=== PATIENT | male | born 1985 | race Caucasian/White ===

== ENCOUNTER 2018-12-24 21:30 | Emergency (ER) | payer SELFPAY ==
[~2018-12-24] VITALS: Ht 182.8 cm; Wt 86.0 kg
[~2018-12-24 21:30] MED LIST: AC500T; ACET-789 PO; AGM875T PO; AMOX500C2 PO; CLIN300C3 PO; HYDR-757 PO; HYDR1TAB PO; OXYC-272 PO
--- NOTE | 2018-12-24 22:01 | ED Lower Extremity ---
General Chief Complaint: Lower Extremity Stated Complaint: L ANKLE INJ Source: patient Exam Limitations: no limitations History of Present Illness Date Seen by Provider: Dec 24, 2018 Time Seen by Provider: 21:59 Initial Comments To ER with left ankle pain for 3 days after rolling it while walking out of [facility] No swelling no bruising that he has noticed. Pain is at the medial malleolus of the ankle Onset: just prior to arrival Severity: mild Pain/Injury Location: left ankle Method of Injury: unknown Allergies and Home Medications Allergies Coded Allergies: NKANo Known Allergies (Unverified Allergy, Mild, 06/05/09) Home Medications Amoxicillin/Clavulanate K 1 Tab Tablet, 1 TAB PO BID Prescribed by: PALMER SCHULER on 01/09/13 1441 Hydrocodone Bit/Acetaminophen 1 Each Tablet, 1 EA PO Q6H PRN for MILD PAIN Prescribed by: PALMER SCHULER on 01/09/13 1441 Patient Home Medication List Home Medication List Reviewed: Yes Review of Systems Constitutional: see HPI EENTM: see HPI Respiratory: no symptoms reported Cardiovascular: no symptoms reported Genitourinary: no symptoms reported Musculoskeletal: see HPI Skin: no symptoms reported Psychiatric/Neurological: No Symptoms Reported Past [id number] Hx Patient Social History Recent Foreign Travel: No Contact w/Someone Who Travel: No Past Medical History Reproductive Disorders: No Physical Exam Vital Signs Vital Signs - First Documented 12/24/18 21:51 Temp 36.6 Pulse 72 Resp 18 B/P (MAP) 132/93 (106) Capillary Refill : Height, Weight, BMI Height: '" Weight: 205lbs. oz. 92.615338om; BMI Method:Stated General Appearance: WD/WN, no apparent distress Neck: full range of motion, normal inspection Respiratory: no respiratory distress, no accessory muscle use Hips: bilateral hip non-tender, bilateral hip normal inspection, bilateral hip normal range of motion Legs: bilateral leg non-tender, bilateral leg normal inspection, bilateral leg normal range of motion Knees: bilateral knee non-tender, bilateral knee normal inspection, bilateral knee normal range of motion Ankles: left ankle pain, left ankle other (no swelling no ecchymosis or erythema no abrasions noted deformity. Strong dorsalis pedis pulse in the foot.) Feet: bilateral foot non-tender, bilateral foot normal inspection, bilateral foot normal range of motion Neurologic/Psychiatric: alert, normal mood/affect, oriented x 3 Skin: normal color, warm/dry Progress/Results/Core Measures Results/Orders My Orders Orders - PALMER SCHULER APRN Ankle, Left, 3 Views (12/24/18 21:56) Vital Signs/I&O 12/24/18 21:51 Temp 36.6 Pulse 72 Resp 18 B/P (MAP) 132/93 (106) Departure Impression Primary Impression: Ankle pain Disposition: HOME, SELF-CARE Condition: Stable Departure-Patient Inst. Decision time for Depature: 22:01 Referrals: NO,LOCAL PHYSICIAN (PCP/Family) Primary Care Physician Patient Instructions: Ankle Sprain (DC) Add. Discharge Instructions: 1. Tylenol and Motrin for pain control 2. Follow-up with your doctor next week for repeat imaging pain persists 3. All discharge instructions reviewed with patient and/or family. Voiced understanding. Work/School Note: Work Release Form Date Seen in the Emergency Department: Dec 24, 2018 Return to Work: Dec 25, 2018 PALMER SCHULER APRN Dec 24, 2018 22:01 POS
[2018-12-24 22:08] VITALS: BP 130/92
--- NOTE | 2018-12-25 07:12 | Diagnostic Imaging Report ---
INDICATION: Ankle pain. 3 views were obtained. FINDINGS: The alignment is normal. The plafonds and talar dome intact. Ankle mortise symmetric. No fracture, dislocation. Soft tissues are unremarkable. IMPRESSION: No focal abnormality left ankle. Dictated by: Dictated on workstation # [id number]
== END 2018-12-24 22:10 | disposition home or self-care (01) ==
LOC: EDUNIT# 21:30 → ER 21:31
DX: M25.572 Pain in left ankle and joints of left foot (principal); X50.1XXA Overexertion from prolonged static or awkward postures, initial encounter; Y92.512 Supermarket, store or market as the place of occurrence of the external cause
CPT/HCPCS: 73610